=== PATIENT | male | born 1970 | race Caucasian/White ===

== ENCOUNTER → 2020-10-21 | Outpatient (CLI) | payer BC ==
--- NOTE | 2020-10-21 20:53 | RAD ---
Left knee 3 views: Reason for examination: Left knee pain and swelling. No known injury. No acute fracture or dislocation is seen. Bone density is normal. No abnormal periosteal reaction is seen. Joint spaces appear to be maintained. There does appear to be some soft tissue fullness in the suprapatellar bursa suggesting joint effusion. IMPRESSION: No acute bony abnormality at the left knee. Probable joint effusion in the suprapatellar bursa. Electronically signed by: Kait Cabrera MD (10/21/2020 8:51 PM) CLAUDE
== END ==
LOC: RAD 16:25
PROVIDERS: ATTEND Family Medicine
DX: M25.562 Pain in left knee (principal)
CPT/HCPCS: 73562

== ENCOUNTER → 2020-10-22 | Outpatient (CLI) | payer BC ==
--- NOTE | 2020-10-22 16:40 | RAD ---
Left Lower Extremity Venous Doppler: Reason for examination: Left lower extremity pain. The left lower extremity venous system was evaluated from the common femoral and greater saphenous ve ins distally to the calf veins with grayscale imaging, color-flow imaging and spectral analysis. There is normal blood flow without deep venous thrombosis. There is normal response of the venous sys tems to compression and augmentation. Rouleaux flow is seen in the greater saphenous vein. A 4 x 4.6 x 2 cm complex fluid collection is seen deep in the popliteal fossa. Impression: No deep venous thrombosis in the left lower extremity venous system. 4 x 4.6 x 2 cm complex fluid collection deep in the popliteal fossa. Electronically signed by: Kait Cabrera MD (10/22/2020 4:38 PM) CLAUDE
== END ==
LOC: US 15:18
PROVIDERS: ATTEND Family Medicine
DX: M79.662 Pain in left lower leg (principal)
CPT/HCPCS: 93971